=== PATIENT | female | born 1980 | race Caucasian/White ===

== ENCOUNTER 2018-06-10 21:39 | Outpatient (CLI) | payer OTHER ==
[2018-06-10] MEDS ORDERED: TERBUTALINE 1 ML (22:17)
[2018-06-10] MEDS: LACTATED RINGER'S 1,000 ML IV (22:31)
[2018-06-10 23:05] LABS: ADD UMIC YES; UR ASCORBIC ACID NEGATIVE (NEGATIVE); UR BILIRUBIN (Dip) NEGATIVE (NEGATIVE); UR BLOOD (Dip) 1+ mg/dL (NEGATIVE); UR CLARITY CLEAR (CLEAR); UR COLOR YELLOW (YELLOW); UR GLUCOSE (Dip) NEGATIVE (NEGATIVE); UR KETONES (Dip) NEGATIVE (NEGATIVE); UR LEUKOCYTE ESTERASE (Dip) NEGATIVE Leu/ul (NEGATIVE); UR NITRITE (Dip) NEGATIVE (NEGATIVE); UR RBC 0 /HPF (0-5); UR SPECIFIC GRAVITY (Dip) 1.017 (1.003-1.030); UR SQUAMOUS EPITHELIAL CELL FEW /HPF (FEW); UR TOTAL PROTEIN (Dip) NEGATIVE (NEGATIVE); UR UROBILINOGEN (Dip) NEGATIVE (NEGATIVE); UR WBC 2 /HPF (0-5)
[2018-06-10] MEDS: TERBUTALINE 1 MG/ML INJ SC (23:21)
== END 2018-06-11 00:36 | disposition home or self-care (01) ==
LOC: OBT 21:39 → L-D 21:40
DX: O26.893 Other specified pregnancy related conditions, third trimester (principal); R10.2 Pelvic and perineal pain; O09.523 Supervision of elderly multigravida, third trimester; O12.03 Gestational edema, third trimester; Z3A.32 32 weeks gestation of pregnancy
CPT/HCPCS: 36415; 76817; 81001; 82731; 96360; 96361; 96372